=== PATIENT | female | born 1965 | race American Indian/Alaskan Native ===

== ENCOUNTER 2019-04-22 11:35 | Emergency (ER) | payer SELFPAY ==
--- NOTE | 2019-04-22 12:34 | XRay Report ---
LUMBAR SPINE 3 VIEWS INDICATION / CLINICAL INFORMATION: MAIN: pain r/t fall 2 days ago . COMPARISON: None available. FINDINGS: VERTEBRAE: Age-indeterminate compression fracture of the L1 vertebral body with approximately 30% hei ght loss anteriorly. Remainder of the visualized vertebral bodies have preserved height. No significa nt malalignment. DISC SPACES / FACET JOINTS:Mild facet arthrosis at the lower lumbar levels. Moderate disc space narro wing at L5-S1. PARASPINAL SOFT TISSUES:No significant abnormality. IMPRESSION: Age-indeterminate superior endplate compression fracture of L1. Comparison to previous im aging would be useful, if available. Correlation with presence of focal tenderness is also advised. Signer Name: Epifanio Jo MD Signed: 04/22/2019 12:30 PM Workstation Name: [id number]
[2019-04-22] MEDS ORDERED: MORPHINE 4 MG/1 ML INJ IM ONE (14:02)
--- NOTE | 2019-04-22 14:19 | Emergency Department Report ---
ED Fall HPI - General Chief Complaint: Fall Stated Complaint: FALL/MIDDLE BACK PAIN Time Seen by Provider: 04/22/19 13:48 Source: patient Mode of arrival: Ambulatory - History of Present Illness Initial Comments: Patient is a 54-year-old female who presents emergency room after a fall that occurred 2 days ago. She states that she slipped and fell and landed on her lower back. She denies any loss of consciousness, numbness, weakness, bowel or bladder incontinence. She states that she has had constipation for 2 days. Patient states that she was seen at urgent care and had an x-ray performed at that time and was given prescription for ibuprofen and muscle relaxer. The family states that they were told x-ray was normal. Patient denies any past medical history or allergies medications. language interpretation by patient's son - Related Data Previous Rx's Medication Instructions Recorded Last Taken Type HYDROcodone/APAP 5-325 [[place] 1 each PO Q6HR PRN #12 tablet 04/22/19 Unknown Rx 5/325] Allergies Allergy/AdvReac Type Severity Reaction Status Date / Time No Known Allergies Allergy Unverified 04/22/19 11:41 ED Review of Systems ROS: Stated complaint: FALL/MIDDLE BACK PAIN Other details as noted in HPI Comment: All other systems reviewed and negative ED Past Medical Hx - Past Medical History Previous Medical History?: No - Surgical History Past Surgical History?: No - Social History Smoking Status: Never Smoker Substance Use Type: None - Medications Home Medications: Home Medications Medication Instructions Recorded Confirmed Last Taken Type HYDROcodone/APAP 5-325 [[place] 1 each PO Q6HR PRN #12 tablet 04/22/19 Unknown Rx 5/325] ED Physical Exam - General Limitations: No Limitations General appearance: alert, other (appears to be in mild distress secondary to pain) - Head Head exam: Present: atraumatic, normocephalic - Eye Eye exam: Present: normal appearance - ENT ENT exam: Present: mucous membranes moist - Neck Neck exam: Present: normal inspection, full ROM. Absent: tenderness - Respiratory Respiratory exam: Present: normal lung sounds bilaterally. Absent: respiratory distress, wheezes, rales, rhonchi, stridor, chest wall tenderness, accessory muscle use, decreased breath sounds, prolonged expiratory - Cardiovascular Cardiovascular Exam: Present: regular rate, normal rhythm, normal heart sounds. Absent: systolic murmur, diastolic murmur, rubs, gallop - Back Exam Back exam: Present: normal inspection, full ROM. Absent: paraspinal tenderness, vertebral tenderness - Neurological Exam Neurological exam: Present: alert, oriented X3, CN II-XII intact. Absent: motor sensory deficit - Psychiatric Psychiatric exam: Present: normal affect, normal mood - Skin Skin exam: Present: warm, dry, intact ED Course Vital Signs 04/22/19 04/22/19 04/22/19 11:49 14:19 17:33 Temperature 98.9 F 97.7 F Pulse Rate 74 75 73 Respiratory 18 16 16 Rate Blood Pressure 120/69 Blood Pressure 134/81 100/62 [Right] O2 Sat by Pulse 100 100 99 Oximetry ED Medical Decision Making - Radiology Data XR L spine Compression fracture L1 with 30% height loss CT L spine compression fracture superior endplate of L1 with 30% height loss - Medical Decision Making Patient is a 54-year-old female who presents emergency room after a fall that occurred 2 days ago. She states that she slipped and fell and landed on her lower back. She denies any loss of consciousness, numbness, weakness, bowel or bladder incontinence. She states that she has had constipation for 2 days. Patient states that she was seen at urgent care and had an x-ray performed at that time and was given prescription for ibuprofen and muscle relaxer. The family states that they were told x-ray was normal. Patient denies any past medical history or allergies medications. language interpretation by patient's son vitals are normal. XR and CT L-spine: compression fracture superior endplate of L1 with 30% height loss. on exam: No midline spinal or paraspinal tenderness to palpation, no step offs, no deformities, no neurological deficits, patient states that the pain feels like it's inside and does not hurt with palpation. She did not drive to the emergency department and her pain was treated and she was feeling much better. discussed case with Dr. Lopez who reviewed the images and states that patient may follow up with an orthopedic doctor on an outpatient basis and be discharged home with pain control. pt given prescription for norco. advised to please take medication as prescribed as needed. Do not drive or operate heavy machinery while taking pain medication. Please use this medication for severe pain and ibuprofen for moderate pain. May use ice pack, heating pad, rest. Follow-up with an orthopedic doctor in the next 2-3 days for further evaluation and management. Return to the emergency room for any new or worsening symptoms. - Differential Diagnosis sprain, strain, fx, dislocation, bulging disc, disc herniation Critical care attestation.: If time is entered above; I have spent that time in minutes in the direct care of this critically ill patient, excluding procedure time. ED Disposition Clinical Impression: Vertebral compression fracture Qualifiers: Encounter type: initial encounter Fracture of vertebra location: lumbar Lumbar vertebra fracture level: L1 Qualified Code(s): S32.010A - Wedge compression fracture of first lumbar vertebra, initial encounter for closed fracture Disposition: TO HOME OR SELFCARE Is pt being admited?: No Does the pt Need Aspirin: No Condition: Stable Instructions: Vertebral Compression Fracture (ED) Additional Instructions: Please take medication as prescribed as needed. Do not drive or operate heavy machinery while taking pain medication. Please use this medication for severe pain and ibuprofen for moderate pain. May use ice pack, heating pad, rest. Follow-up with an orthopedic doctor in the next 2-3 days for further evaluation and management. Return to the emergency room for any new or worsening symptoms. Prescriptions: HYDROcodone/APAP 5-325 [[place] 5/325] 1 each PO Q6HR PRN #12 tablet PRN Reason: Pain , Severe (7-10) Referrals: [facility] [Provider Group] - 2-3 Days Time of Disposition: 16:52 Print Language: FIJIAN
--- NOTE | 2019-04-22 16:32 | Cat Scan Report ---
CT LUMBAR SPINE WITHOUT CONTRAST HISTORY: Fell 2 days ago COMPARISON: Lumbosacral spine series obtained earlier today TECHNIQUE: CT images of the lumbar spine were obtained without contrast. Sagittal and coronal reform ats were post-processed. All CT scans at this location are performed using CT dose reduction for ALARima Rios by means of automated exposure control. CONTRAST: None. FINDINGS: Alignment: Normal. No traumatic subluxation. Vertebrae:Mild vertebral compression fracture is seen along the superior endplate left side with appr oximately 30% height loss anteriorly. Fracture is seen involving anterior and left lateral cortex. In ferior endplate, posterior cortex and right lateral cortex are normal. In all 3 planes, I do not see adjacent soft tissue swelling. However, given the history of 5 falling down 2 days ago, this has to b e considered as a recent fracture. Other vertebral bodies are normal. Disc Spaces: Lower based disc protrusion is seen at L3-L4 disc level extending slightly more to the r ight side. Midline disc protrusion is seen at L4-L5 disc level. Broad-based shallow disc protrusion i s seen at L5-S1 level. Facet Joints:No significant abnormality. Additional Findings: None IMPRESSION: 1. Compression fracture along the superior endplate of L1 with approximately 30% height loss; though there is no adjacent soft tissue swelling, given the history of falling down days ago, I am consider ing this is a recent fracture. Posterior cortex is normal. Bony canal is normal. Signer Name: Chelsie Sibley MD Signed: 04/22/2019 4:27 PM Workstation Name: [id number]
[2019-04-22 17:34] VITALS: BP 100/62
== END 2019-04-22 17:34 | disposition home or self-care (01) ==
LOC: ED 11:35
DX: S32.010A Wedge compression fracture of first lumbar vertebra, initial encounter for closed fracture (principal); Z79.899 Other long term (current) drug therapy; W01.0XXA Fall on same level from slipping, tripping and stumbling without subsequent striking against object, initial encounter; Y93.89 Activity, other specified; Y92.89 Other specified places as the place of occurrence of the external cause; Y99.8 Other external cause status
CPT/HCPCS: 72100; 72131; 96372; 99284; J2270